=== PATIENT | male | born 1980 | race Caucasian/White ===

== ENCOUNTER 2017-05-07 13:12 | Observation (INO) | payer OTHER ==
[~2017-05-07] VITALS: Ht 175.3 cm; Wt 92.3 kg
[~2017-05-07 13:12] MED LIST: LORTA5 PO; PYRI200T4 PO
[2017-05-07 13:13] VITALS: BP 128/90; PULSE 84; RESP 20; TEMP 98.4; O2SAT 97
--- NOTE | 2017-05-07 13:17 | PD ---
Physical Exam Time Seen by Provider: 13:15 Narrative 36yo M c/o migraine SAMPSON's since March after having TIA. Sent by Dr. Witt. Went to [facility] last night and had CT; he says he's had 2 CT scans since March 19. Patient seen in triage. VS reviewed. Awaiting bed placement. Data Data Last Documented VS Vital Signs Date Time Temp Pulse Resp B/P (MAP) Pulse Ox O2 Delivery O2 Flow Rate FiO2 05/07/17 13:13 98.4 84 20 128/90 (103) 97 Room Air MDM Supervised Visit with ADELFO: Lacy Ochoa May 07, 2017 13:17
[2017-05-07] MEDS ORDERED: PROCHLORPERAZINE INJ 10 MG/2 ML VIAL IV PUSH ONE (14:30)
[2017-05-07] MEDS ORDERED: SODIUM CHLOR 0.9% 1000 ML INJ 1,000 ML IV ONE (14:30)
[2017-05-07] MEDS ORDERED: diphenhydrAMINE HCL 50 MG/ML VIAL IV PUSH ONE (14:30)
[2017-05-07 15:12] LABS: BASOPHIL % 0.3 % (0.0-2.0); EOSINOPHIL # 0.2 TH/MM3 (0-0.4); EOSINOPHIL % 1.7 % (0.0-4.0); HEMATOCRIT 47.5 % (39.0-51.0); HEMO FLAGS DIFF FINAL; LYMPHOCYTE # 3.1 TH/MM3 (1.0-4.8); MEAN CELL VOLUME 93.5 FL (80.0-100.0); MEAN CORPUSCULAR HEMOGLOBIN 31.9 PG (27.0-34.0); MEAN CORPUSCULAR HGB CONC 34.1 % (32.0-36.0); MONO % 7.2 % (0.0-8.0); NEUT % 59.8 % (16.0-70.0); PLATELET COUNT 249 TH/MM3 (150-450); RED BLOOD COUNT 5.08 MIL/MM3 (4.50-5.90); RED CELL DISTRIBUTION WIDTH 13.1 % (11.6-17.2)
[2017-05-07] MEDS ORDERED: LACTULOSE SYRUP 20 GM/30 ML CUP PO PRN (15:15)
[2017-05-07] MEDS ORDERED: ONDANSETRON HCL 4 MG/2 ML VIAL IVP PRN (15:15)
[2017-05-07] MEDS ORDERED: BISACODYL 10 MG SUPP RECTAL PRN (15:15)
[2017-05-07] MEDS ORDERED: NALOXONE HCL 0.4 MG/ML AMP IV PRN (15:15)
[2017-05-07] MEDS ORDERED: SENNOSIDES 8.6 MG TAB PO PRN (15:15)
[2017-05-07] MEDS ORDERED: MAGNESIUM HYDROXIDE SUSP 30 ML CUP PO PRN (15:15)
[2017-05-07] MEDS ORDERED: SODIUM CHLORIDE 0.9% FLUSH 10 ML FLUSH IV FLUSH PRN (15:15)
[2017-05-07] MEDS ORDERED: ACETAMINOPHEN 325 MG TAB PO PRN (15:15)
[2017-05-07 15:17] LABS: APTT (PATIENT) 27.7 SEC (24.3-30.1)
[2017-05-07] MEDS ORDERED: GADODIAMIDE PF 287 MG/ML 20 ML VIAL (for RAD MRI) IVCONTRAST ONE (15:23)
[2017-05-07 15:24] LABS: ANION GAP 8 MEQ/L (5-15); AST (GOT) 19 U/L (15-37); BICARBONATE 27.6 MEQ/L (21.0-32.0); BLOOD UREA NITROGEN 11 MG/DL (7-18); CHLORIDE 104 MEQ/L (98-107); GLOMERULAR FILTRATION RATE 82 ML/MIN (>89); POTASSIUM 3.9 MEQ/L (3.5-5.1); SODIUM (NA) 140 MEQ/L (136-145)
[2017-05-07 15:25] LABS: ALT (GPT) 33 U/L (12-78)
[2017-05-07 15:27] LABS: ALKALINE PHOSPHATASE 90 U/L (45-117); TOTAL BILIRUBIN ADULT 0.4 MG/DL (0.2-1.0)
--- NOTE | 2017-05-07 15:27 | PD ---
HPI Chief Complaint: Headache Time Seen by Provider: 13:48 Travel History International Travel<30 days: No Contact w/Intl Traveler<30days: No Traveled to known affect area: No History of Present Illness HPI This is a 36-year-old male with a history of HIV diagnosed in 2004, well- controlled on antiretroviral medicines, who presents to the emergency department with headache. He reports that in March he had 2 episodes a heat stroke. He said since then he's had pretty persistent but waxing and waning headaches. He's been seen in the ER at [facility] multiple times. He's had lab work, 2 CTs of his head, with no clear cause of the symptoms. He states more recently started having intermittent episodes of left arm locking up and tightening with soreness and pain. No clear convulsion symptoms. He saw his infectious disease doctor who had referred him to the emergency department about a week or so ago. He was in the emergency department again last night and so came to [facility] today. History Past Medical History Narrative Medical HIV, well-controlled on medications, last CD4 count was 1650 Social History Alcohol Use: No Tobacco Use: Yes Allergies-Medications (Allergen,Severity, Reaction): Coded Allergies: morphine (Unverified Allergy, Severe, 04/22/17) penicillin G (Unverified Allergy, Severe, 04/22/17) Reported Meds & Prescriptions Reported Meds & Active Scripts Active Lortab 5/325 Tab (Hydrocodone-Acetaminophen) 1 Tab Tab 1 Tab PO Q6H PRN Pyridium (Phenazopyridine HCl) 200 Mg Tab 200 Mg PO TID Review of Systems Except as stated in HPI: all other systems reviewed are Neg Physical Exam Narrative GENERAL: Well-appearing 36-year-old man, no acute distress. SKIN: Focused skin assessment warm/dry. HEAD: Atraumatic. Normocephalic. CARDIOVASCULAR: Regular rate and rhythm. No murmur appreciated. RESPIRATORY: No accessory muscle use. Clear to auscultation. Breath sounds equal bilaterally. GASTROINTESTINAL: Abdomen soft, non-tender, nondistended. Hepatic and splenic margins not palpable. MUSCULOSKELETAL: No obvious deformities. No clubbing. No cyanosis. No edema. NEUROLOGICAL: Awake and alert. No obvious cranial nerve deficits. Motor grossly within normal limits. Normal speech. PSYCHIATRIC: Appropriate mood and affect; insight and judgment normal. Data Data Last Documented VS Vital Signs Date Time Temp Pulse Resp B/P (MAP) Pulse Ox O2 Delivery O2 Flow Rate FiO2 05/07/17 14:27 100 Room Air 05/07/17 13:13 98.4 84 20 128/90 (103) Orders Orders Mri Brain W&W/O Contrast (05/07/17 ) Mrv Brain W Contrast (05/07/17 ) Mra Brain W/O Contrast (Cow) (05/07/17 ) Us Carotid Arteries Comp Bilat (05/07/17 ) Eeg Study (05/07/17 ) Iv Access Insert/Monitor (05/07/17 14:26) Complete Blood Count With Diff (05/07/17 14:26) Comprehensive Metabolic Panel (05/07/17 14:26) Act Partial Throm Time (Ptt) (05/07/17 14:26) Prothrombin Time / Inr (Pt) (05/07/17 14:26) Consult Neurology (05/07/17 ) Consult Infectious Disease (05/07/17 ) Prochlorperazine Inj (Compazine Inj) (05/07/17 14:30) Diphenhydramine Inj (Benadryl Inj) (05/07/17 14:30) Sodium Chlor 0.9% 1000 Ml Inj (Ns 1000 M (05/07/17 14:30) (Hub Use Only)Inp Phy Cons/Ref (05/07/17 ) Place In Observation (05/07/17 ) Vital Signs (Adult) Q4H (05/07/17 15:15) Activity Oob Ad Chanel (05/07/17 15:15) Cathead Operator / Telemetry .CONTINUOUS (05/07/17 15:15) Diet Regular Basic (05/07/17 Dinner) Sodium Chlor 0.9% 1000 Ml Inj (Ns 1000 M (05/07/17 15:15) Sodium Chloride 0.9% Flush (Ns Flush) (05/07/17 15:15) Sodium Chloride 0.9% Flush (Ns Flush) (05/07/17 21:00) Acetaminophen (Tylenol) (05/07/17 15:15) Ondansetron Inj (Zofran Inj) (05/07/17 15:15) Vte Prophylaxis Not Indicated (05/07/17 15:15) Scd Bilateral/Knee High SAUNDRA.BID (05/07/17 15:15) Naloxone Inj (Narcan Inj) (05/07/17 15:15) Docusate Sodium-Senna (Marlene-Colace) (05/07/17 21:00) Magnesium Hydroxide Liq (Milk Of Magnesi (05/07/17 15:15) Sennosides (Senokot) (05/07/17 15:15) Bisacodyl Supp (Dulcolax Supp) (05/07/17 15:15) Lactulose Liq (Lactulose Liq) (05/07/17 15:15) Idrp-Gylyd-Vgot 325-50-40 Mg (Fioricet 3 (05/07/17 15:30) Admit Order (Ed Use Only) (05/07/17 ) Labs Laboratory Tests Test 05/07/17 14:40 White Blood Count 10.0 TH/MM3 Red Blood Count 5.08 MIL/MM3 Hemoglobin 16.2 GM/DL Hematocrit 47.5 % Mean Corpuscular Volume 93.5 FL Mean Corpuscular Hemoglobin 31.9 PG Mean Corpuscular Hemoglobin Concent 34.1 % Red Cell Distribution Width 13.1 % Platelet Count 249 TH/MM3 Mean Platelet Volume 8.2 FL Neutrophils (%) (Auto) 59.8 % Lymphocytes (%) (Auto) 31.0 % Monocytes (%) (Auto) 7.2 % Eosinophils (%) (Auto) 1.7 % Basophils (%) (Auto) 0.3 % Neutrophils # (Auto) 6.0 TH/MM3 Lymphocytes # (Auto) 3.1 TH/MM3 Monocytes # (Auto) 0.7 TH/MM3 Eosinophils # (Auto) 0.2 TH/MM3 Basophils # (Auto) 0.0 TH/MM3 CBC Comment DIFF FINAL Differential Comment Prothrombin Time 11.0 SEC Prothromb Time International Ratio 1.0 RATIO Activated Partial Thromboplast Time 27.7 SEC MDM Medical Decision Making Medical Screen Exam Complete: Yes Emergency Medical Condition: Yes Differential Diagnosis Headache, concussion, bleed, partial seizures, other Narrative Course Medical decision making INITIAL: 36-year-old man, presents to the emergency department with ongoing headaches, and intermittent left upper extremity muscle spasms or contractures. Slightly concerning for partial seizures. 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 I spoke with Dr. Mathews, who agrees with these recommendations and would like the patient brought into the hospital for this. He like the patient to be seen by infectious disease. I spoke with Dr. Cerna, with [facility] hospitalist who will admit the patient. Diagnosis Primary Impression: Headache Additional Impression: Spasms of the hands or feet Admitting Information Admitting Physician Requests: Admit Rah Maldonado MD May 07, 2017 15:27
[2017-05-07] MEDS ORDERED: oxyCODONE/ACETAMINOPHEN 5 MG/325 MG TAB PO PRN ×2 (15:30)
[2017-05-07] MEDS ORDERED: ACETAMIN 325 MG/BUTALBITAL 50 MG/CAFFEINE 40 MG TAB PO PRN (15:30)
--- NOTE | 2017-05-07 15:57 | HHI.HP ---
HPI Service [facility] Hospitalists Primary Care Physician Med Huerta MD Admission Diagnosis Headache, Seizures Diagnoses: Chief Complaint: Headaches/migraines Travel History International Travel<30 Days: No Contact w/Intl Traveler <30 Da: No Traveled to Known Affected Are: No History of Present Illness This is a 36 yo male with PMHX for HIV diagnosed in 2004 well controlled on antiretroviral medications with last CD4 count of 1650 who was sent to [facility] ED by his ID physician with complaints of severe headaches that have been ongoing since he suffered a heat stroke on 03/18/17. Patient reports nearly daily headaches with associated photophobia and phonophobia that wax and wane in severity. He denies any recent illness. He denies any fever or chills. He denies any associated vision changes, lightheadedness, nausea, vomiting, shortness of breath, chest pain or abdominal pain. He denies any eye tearing or nasal discharge. He denies any personal or family history of migraines. Since the heat stroke, he reports 4 episodes lasting from 2 to 4 minutes of becoming "locked up" and unable to move with slurred speech and confusion followed by total body weakness. He denies any associated bowel/ bladder incontinence or tongue biting. He has been to the [facility] ED 3 times with these complaints and has had lab work and CT scan head x 2 that were unremarkable. They also attempted 2 lumbar punctures unsuccessfully. He has not been seen by a Neurologist. 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 Dr. Mathews was contacted from our ED physician and agrees with these recommendations and would like the patient brought into the hospital for this. Dr. Mathews has requested ID consultation. Lab studies obtained in the ED were unremarkable. Review of Systems Except as stated in HPI: all other systems reviewed are Neg Past Family Social History Past Medical History HIV well controlled on antiretroviral medications Past Surgical History Appendectomy ORIF right leg Reported Medications Lortab 5/325 Tab (Hydrocodone-Acetaminophen) 1 Tab Tab 1 Tab PO Q6H PRN Pyridium (Phenazopyridine HCl) 200 Mg Tab 200 Mg PO TID Allergies: Coded Allergies: morphine (Unverified Allergy, Severe, 04/22/17) penicillin G (Unverified Allergy, Severe, 04/22/17) Active Ordered Medications Current Medications Medications (Trade) Dose Ordered Sig/Gilberto Route Start Time Stop Time Status Last Admin Sodium Chloride 1,000 ml @ 100 mls/hr Q10H IV 05/07/17 15:15 UNV (NS Flush) 2 ml UNSCH PRN IV FLUSH 05/07/17 15:15 UNV (NS Flush) 2 ml BID IV FLUSH 05/07/17 21:00 UNV (Tylenol) 650 mg Q4H PRN PO 05/07/17 15:15 UNV (Zofran Inj) 4 mg Q6H PRN IVP 05/07/17 15:15 UNV (Narcan Inj) 0.4 mg UNSCH PRN IV 05/07/17 15:15 UNV (Marlene-Colace) 1 tab BID PO 05/07/17 21:00 UNV (Milk Of Magnesia Liq) 30 ml Q12H PRN PO 05/07/17 15:15 UNV (Senokot) 17.2 mg Q12H PRN PO 05/07/17 15:15 UNV (Dulcolax Supp) 10 mg DAILY PRN RECTAL 05/07/17 15:15 UNV (Lactulose Liq) 30 ml DAILY PRN PO 05/07/17 15:15 UNV (Percocet 5-325 Mg) 1 tab Q4H PRN PO 05/07/17 15:30 UNV (Percocet 5-325 Mg) 2 tab Q6H PRN PO 05/07/17 15:30 UNV Family History No family history of migraines, seizures or TIA/CVA. (+)DM Social History Patient reports tobacco use of 1ppd since he was 13. He reports rare alcohol consumption. He denies any illicit drug use. Physical Exam Vital Signs Vital Signs Date Time Temp Pulse Resp B/P (MAP) Pulse Ox O2 Delivery O2 Flow Rate FiO2 05/07/17 14:27 100 Room Air 05/07/17 13:13 98.4 84 20 128/90 (103) 97 Room Air Physical Exam GENERAL: This is a well-nourished, well-developed patient, in no apparent distress. Lying in the room with the lights off. Awake and alert. SKIN: No rashes, ecchymoses or lesions. Cool and dry. HEAD: Atraumatic. Normocephalic. No temporal or scalp tenderness. EYES: Pupils equal round and reactive. Extraocular motions intact. No scleral icterus. No injection or drainage. ENT: Nose without bleeding or purulent drainage. Throat without erythema, tonsillar hypertrophy or exudate. Uvula midline. Airway patent. NECK: Trachea midline. No lymphadenopathy. Supple, nontender, no meningeal signs. CARDIOVASCULAR: Regular rate and rhythm without murmurs, gallops, or rubs. RESPIRATORY: Clear to auscultation. Breath sounds equal bilaterally. No wheezes , rales, or rhonchi. GASTROINTESTINAL: Abdomen soft, non-tender, nondistended. No hepato-splenomegaly , or palpable masses. No guarding. MUSCULOSKELETAL: Extremities without clubbing, cyanosis, or edema. No joint tenderness, effusion, or edema noted. No calf tenderness. NEUROLOGICAL: Awake and alert. Cranial nerves II through XII intact. Motor and sensory grossly within normal limits. Five out of 5 muscle strength in all muscle groups. Normal speech. Laboratory Laboratory Tests Test 05/07/17 14:40 White Blood Count 10.0 Red Blood Count 5.08 Hemoglobin 16.2 Hematocrit 47.5 Mean Corpuscular Volume 93.5 Mean Corpuscular Hemoglobin 31.9 Mean Corpuscular Hemoglobin Concent 34.1 Red Cell Distribution Width 13.1 Platelet Count 249 Mean Platelet Volume 8.2 Neutrophils (%) (Auto) 59.8 Lymphocytes (%) (Auto) 31.0 Monocytes (%) (Auto) 7.2 Eosinophils (%) (Auto) 1.7 Basophils (%) (Auto) 0.3 Neutrophils # (Auto) 6.0 Lymphocytes # (Auto) 3.1 Monocytes # (Auto) 0.7 Eosinophils # (Auto) 0.2 Basophils # (Auto) 0.0 CBC Comment DIFF FINAL Differential Comment Prothrombin Time 11.0 Prothromb Time International Ratio 1.0 Activated Partial Thromboplast Time 27.7 Blood Urea Nitrogen 11 Creatinine 1.02 Random Glucose 92 Total Protein 6.9 Albumin 3.7 Calcium Level 9.3 Alkaline Phosphatase 90 Aspartate Amino Transf (AST/SGOT) 19 Alanine Aminotransferase (ALT/SGPT) 33 Total Bilirubin 0.4 Sodium Level 140 Potassium Level 3.9 Chloride Level 104 Carbon Dioxide Level 27.6 Anion Gap 8 Estimat Glomerular Filtration Rate 82 Result Diagram: 05/07/17 1440 05/07/17 1440 Caprini VTE Risk Assessment Caprini VTE Risk Assessment: No/Low Risk (score <= 1) Caprini Risk Assessment Model Point Value = 1 Point Value = 2 Point Value = 3 Point Value = 5 Age 41-60 Minor surgery BMI > 25 kg/m2 Swollen legs Varicose veins or History of unexplained or recurrent spontaneous Oral contraceptives or hormone replacement Sepsis (< 1 month) Serious lung disease, including pneumonia (< 1 month) Abnormal pulmonary function Acute myocardial infarction Congestive heart failure (< 1 month) History of inflammatory bowel disease Medical patient at bed rest Age 61-74 Arthroscopic surgery Major open surgery (> 45 min) Laparoscopic surgery (> 45 min) Malignancy Confined to bed (> 72 hours) Immobilizing plaster cast Central venous access Age >= 75 History of VTE Family history of VTE Factor V Leiden Prothrombin [id number] Lupus anticoagulant Anticardiolipin antibodies Elevated serum homocysteine Heparin-induced thrombocytopenia Other congenital or acquired thrombophilia Stroke (< 1 month) Elective arthroplasty Hip, pelvis, or leg fracture Acute spinal cord injury (< 1 month) Prophylaxis Regimen Total Risk Factor Score Risk Level Prophylaxis Regimen 0-1 Low Early ambulation 2 Moderate Order ONE of the following: *Sequential Compression Device (SCD) *Heparin 5000 units SQ BID 3-4 Higher Order ONE of the following medications: *Heparin 5000 units SQ TID *Enoxaparin/Lovenox 40 mg SQ daily (WT < 150 kg, CrCl > 30 mL/min) *Enoxaparin/Lovenox 30 mg SQ daily (WT < 150 kg, CrCl > 10-29 mL/min) *Enoxaparin/Lovenox 30 mg SQ BID (WT < 150 kg, CrCl > 30 mL/min) AND/OR *Sequential Compression Device (SCD) 5 or more Highest Order ONE of the following medications: *Heparin 5000 units SQ TID (Preferred with Epidurals) *Enoxaparin/Lovenox 40 mg SQ daily (WT < 150 kg, CrCl > 30 mL/min) *Enoxaparin/Lovenox 30 mg SQ daily (WT < 150 kg, CrCl > 10-29 mL/min) *Enoxaparin/Lovenox 30 mg SQ BID (WT < 150 kg, CrCl > 30 mL/min) AND *Sequential Compression Device (SCD) Assessment and Plan Assessment and Plan 36 yo male with PMHX for HIV diagnosed in 2004 well controlled on antiretroviral medications with last CD4 count of 1650 who was sent to [facility] ED by his ID physician with complaints of severe headaches that have been ongoing since he suffered a heat stroke on 03/18/17. Severe headaches - Migraine vs seizure vs TIA/CVA Dr. Mathews consulted while patient in ED and will see patient. Will follow up on his assessment and recommendations. ID consulted as requested by Dr. Mathews VSS, patient is afebrile, initial lab studies unremarkable obtain TSH level continuous cardiac monitoring MRI brain MRV Brain US Carotids EEG Percocet for pain as needed. Patient reports intolerance to Fioricet Zofran prn nausea HIV well controlled with recent CD4 count of 1650 continue patient on home antiretroviral medications DVT prophylaxis Bilateral SCDs Discussed with patient, significant other and Dr. Parth TAYLOR Comments Patient complaining of a headache. He stated that light makes the headache worse. He had this problem since he had he stroke. Patient was evaluated at [facility] with negative workup. By his infectious disease physician to come to the ED. GENERAL: in NAD SKIN: Warm and dry. HEAD: Normocephalic. EYES: No scleral icterus. No injection or drainage. NECK: Supple, trachea midline. No JVD or lymphadenopathy. CARDIOVASCULAR: Regular rate and rhythm without murmurs, gallops, or rubs. RESPIRATORY: Breath sounds equal bilaterally. No accessory muscle use. GASTROINTESTINAL: Abdomen soft, non-tender, nondistended. MUSCULOSKELETAL: No cyanosis, or edema. BACK: Nontender without obvious deformity. No CVA tenderness. NEURO: AAO 3. Cranial nerve II-12 intact. Sensation is intact. Motor is grossly intact. Headache, questionable migraine headache Questionable seizure activity History of HIV Patient will have TIA workup with EEG to rule out seizure. Will give Percocet when necessary for pain since patient stated that the one thing that worked so far. Neurologist already consulted. Attestation The exam, history, and the medical decision-making described in the above note were completed with the assistance of the mid-level provider. I reviewed and agree with the findings presented. I attest that I had a [id number] encounter with the patient on the same day, and personally performed and documented my assessment and findings in the medical record. Helene Hicks May 07, 2017 15:57 Pamela Cerna MD May 07, 2017 17:36
--- NOTE | 2017-05-07 15:58 | RADRPT ---
EXAM DATE/TIME: 05/07/2017 15:11 [facility] COMPARISON: No previous studies available for comparison. INDICATIONS : Weakness. MEDICAL HISTORY : Weakness. HIV+. SURGICAL HISTORY : None. ENCOUNTER: Initial ACUITY: 4-6 days PAIN SCORE: 7/10 LOCATION: Bilateral neck PEAK SYSTOLIC VELOCITIES (cm/sec): ICA/CCA RATIO: Right: 0.9 Left: 0.8 ICA: Right: 90.5 Left: 85.1 CCA: Right: 96.4 Left: 111.3 ECA: Right: 100.3 Left: 101.7 VERTEBRAL: Right: 64.6 antegrade Left: 36.2 antegrade Elevated flow velocities and ICA/CCA ratios have been found to correlate with increased degrees of vessel stenosis, calculated as percentage of diameter relative to a normal segment of distal ICA/CCA FINDINGS: RIGHT CAROTID: No significant stenosis is visualized. The waveforms are within normal limits. LEFT CAROTID: No significant stenosis is visualized. The waveforms are within normal limits. VERTEBRAL ARTERIES: Antegrade flow is seen in both vertebral arteries. MISCELLANEOUS: There are bilateral thyroid nodules identified, largest in the right lobe greater than 15 mm. CONCLUSION: No evidence of flow-limiting carotid stenosis. Recommend thyroid sonography on an elective basis. Tank Wiseman MD on May 07, 2017 at 15:53 Board Certified Radiologist. This report was verified electronically.
[2017-05-07 17:27] VITALS: BP 108/61; PULSE 65; RESP 16; O2SAT 97
--- NOTE | 2017-05-07 17:38 | RADRPT ---
EXAM DATE/TIME: 05/07/2017 16:32 [facility] COMPARISON: No previous studies available for comparison. INDICATIONS : Cephalgia. Seizures. CONTRAST: 20 cc Omniscan (gadodiamide) IV MEDICAL HISTORY : HIV. SURGICAL HISTORY : Oskar in leg. ENCOUNTER: Subsequent ACUITY: 1 day PAIN SCORE: 4/10 LOCATION: head. TECHNIQUE: Multiplanar, multisequence MRI of the brain was performed both prior to and following the administrat ion of paramagnetic contrast. FINDINGS: CEREBRUM: The ventricles are normal for age. No evidence of midline shift, mass lesion, hemorrhage or acute in farction. No extraaxial fluid collections are seen. The pituitary gland and suprasellar cistern are normal in configuration. WHITE MATTER: No significant signal abnormalities are seen in the white matter. POSTERIOR FOSSA: The cerebellum and brainstem are intact. The 4th ventricle is midline. The cerebellopontine angle is unremarkable. The cerebellar tonsils are normal in position. DIFFUSION IMAGING: No focal areas of restricted diffusion are seen. No evidence of acute infarction. EXTRACRANIAL: The visualized portions of the orbits and paranasal sinuses are unremarkable. POST-CONTRAST: No abnormal areas of parenchymal or dural enhancement. No evidence of blood-brain barrier breakdown. CONCLUSION: Unremarkable MRI study. Elia Sahu MD on May 07, 2017 at 17:35 Board Certified Radiologist. This report was verified electronically.
--- NOTE | 2017-05-07 17:39 | RADRPT ---
EXAM DATE/TIME: 05/07/2017 16:32 1 [facility] COMPARISON: No previous studies available for comparison. INDICATIONS : Cephalgia. Seizures. MEDICAL HISTORY : HIV. SURGICAL HISTORY : Oskar in leg. ENCOUNTER: Subsequent ACUITY: 1 day PAIN SCORE: 4/10 LOCATION: head. Please note a normal MRA of the brain does not entirely exclude the possibility of a small aneurysm, nor the possibility of distal intracranial vessel disease. TECHNIQUE: 3D time of flight MRA was performed. Source images, multiplanar STS MIP, and 3D volume MIP reconstru ctions were reviewed. FINDINGS: There is excellent visualization of the major intracranial arteries out to the second-order branch ve ssels. There is no evidence for aneurysm, vessel truncation or stenosis, and no evidence for vascula r malformation. CONCLUSION: Unremarkable exam. Elia Sahu MD on May 07, 2017 at 17:37 Board Certified Radiologist. This report was verified electronically.
[2017-05-07] MEDS ORDERED: SODIUM CHLOR 0.9% 1000 ML INJ 1,000 ML IV SCH (18:00)
--- NOTE | 2017-05-07 18:47 | RADRPT ---
EXAM DATE/TIME: 05/07/2017 16:32 COMPARISON: No previous studies available for comparison. INDICATIONS : Seizures. Cephalgia. CONTRAST: 20 cc Omniscan (gadodiamide) IV MEDICAL HISTORY : HIV. SURGICAL HISTORY : Oskar in leg. ENCOUNTER: Subsequent ACUITY: 1 day PAIN SCORE: 4/10 LOCATION: head. FINDINGS: The dural sinuses appear patent. No thrombus is seen. CONCLUSION: Normal MRV. Tank Givens MD on May 07, 2017 at 18:44 Board Certified Radiologist. This report was verified electronically.
[2017-05-07 20:00] VITALS: BP 105/58; PULSE 65; RESP 18; TEMP 98.1; O2SAT 93
[2017-05-07] MEDS ORDERED: SODIUM CHLORIDE 0.9% FLUSH 10 ML FLUSH IV FLUSH SCH (21:00)
[2017-05-07] MEDS: DOCUSATE SODIUM 50 MG/SENNA 8.6 MG TAB PO SCH (21:15)
[2017-05-07 21:30] VITALS: PULSE 75
[2017-05-08] VITALS: BP 129/85; PULSE 71; RESP 18; TEMP 98.2; O2SAT 96
[2017-05-08 04:00] VITALS: BP 107/69; PULSE 78; RESP 18; TEMP 97.7; O2SAT 96
--- NOTE | 2017-05-08 07:12 | MB ---
cc: SHIV NELSON DATE OF CONSULTATION 05/07/2017 HISTORY OF PRESENT ILLNESS A 36-year-old right-handed man with a history of HIV-positive, otherwise very healthy. No major medical problems. He thinks he had a "heat stroke" on about March 16 where he was outside, it was hot. He went home, took a shower. It was after the shower, he was by the bed and he fell on the bed and was unconscious or asleep it is unclear for about 4 hours or so. He had a headache at that time and the headaches seemed to start about that time, left parietal and right posterior. He has had a headache most days since. He has been about three days without a headache a few times since that time. He never had a headache prior to that. He has been taking all of his HIV meds. He says he has a good CD4 count. Then, about 2 days later, he was home sitting on the bed putting his shorts on when again the next thing he knows he woke up on the bed and it was about 4 hours later. Headaches are about an 8/10, throbbing. No scintillations, nausea or vomiting. Then on or about April 20 he had an episode where he was sitting watching TV and his left arm spasmed up as did the leg and he had difficulty talking. It was very tight and with spasm, lasted about 15 minutes and then returned to normal. A similar episode occurred on April 25; that lasted about 4 minutes. No odd smells, tastes or devi vu. He has never had a seizure, never woke up, wet the bed or bit his tongue. His partner that lives with him has seizures, however. REVIEW OF SYSTEMS He denies any hypertension, diabetes, hypercholesterolemia, [place], CABG, cardiac arrhythmia, renal, hepatic or pulmonary disease, thyroid disease, lupus, ulcer, cancer, seizure or stroke. MEDICATIONS 1. Lortab. 2. Pyridium. 3. Presumably some other meds for HIV. ALLERGIES MORPHINE. PENICILLIN G. FAMILY HISTORY Negative for cancer or seizure. Positive for stroke. SOCIAL HISTORY He is a smoker, not a drinker. No drugs. 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 PHYSICAL EXAMINATION VITAL SIGNS: Afebrile, 65, 16 108/61. NECK: There were no carotid bruits. HEART: Regular rhythm. I do not detect a murmur. NEUROLOGICAL EXAMINATION: Disks are sharp. Pupils show the left pupil was about 4 mm, the right is 3.5. They both react normally. Visual paul are full. Extraocular movements intact without nystagmus. Face symmetric with normal station. Tongue was midline. There is no drift. He had normal strength in upper and lower extremities bilaterally. Tone was normal throughout. DTRs are 1+ and symmetric throughout. Toes downgoing bilaterally. He has no ankle clonus. Pinprick, vibratory sense are intact throughout. He is not ataxic on [id number]. Fast finger movements are symmetric and normal. LABORATORY DATA CBC is normal. Basic metabolic profile, LFTs, albumin, coags normal. IMAGING STUDIES An MRI of the brain was normal with and without contrast as was carotid ultrasound, MRA of the crow of [place] and MR venogram of the brain read as normal. IMPRESSION 1. I am not sure why he has developed headaches now. He has never had them before. I am concerned of course with the HIV he could have a cryptococcal meningitis. I will have ID see him to evaluate him with the HIV. 2. We will check an LP including an opening pressure and an EEG in case he develops seizures. 3. Check a sed rate on him. I will be following him with you in the hospital. MD MARCO Hummel/ERICA /6:40 PM /6:52 AM
[2017-05-08 08:23] VITALS: BP 116/71; PULSE 71; RESP 18; TEMP 98.4; O2SAT 97
--- NOTE | 2017-05-08 09:00 | HHI.PR ---
Subjective Remarks no new spells trotter gone Objective Vital Signs Date Time Temp Pulse Resp B/P (MAP) Pulse Ox O2 Delivery O2 Flow Rate FiO2 05/08/17 08:23 98.4 71 18 116/71 (86) 97 05/08/17 04:00 97.7 78 18 107/69 (82) 96 05/08/17 00:00 98.2 71 18 129/85 (100) 96 05/07/17 21:30 75 05/07/17 20:00 98.1 65 18 105/58 (74) 93 05/07/17 17:27 65 16 108/61 (77) 97 Room Air 05/07/17 14:27 100 Room Air 05/07/17 13:13 98.4 84 20 128/90 (103) 97 Room Air I/O 05/07/17 05/07/17 05/07/17 05/08/17 05/08/17 05/08/17 07:00 15:00 23:00 07:00 15:00 23:00 # Voids 1 Result Diagram: 05/07/17 1440 05/07/17 1440 Objective Remarks nad nl speech Assessment and Plan Assessment and Plan imp mri /a/v and us nl eeg pend LP and labs pend after eeg done will start juan should hold on driving until further notice Odell Mathews MD May 08, 2017 09:00
[2017-05-08] MEDS ORDERED: LORazepam 2 MG/ML VIAL ONE (09:41)
--- NOTE | 2017-05-08 10:29 | PD.RAD ---
Post Procedure Progress Note Pre Procedure Diagnosis: (1) Headache Post Procedure Diagnosis: (1) Headache Procedure Date: May 08, 2017 Supervising Radiologist: Odell Salgado Proceduralist/Assist: Gabriela Robertson, RT(R)(CV), Jenelle Woods RT(R), Shaila Marrero RT(R) Anesthesia: Local Plan of Activity Patient to Unit: Nursing Unit Patient Condition: Good See PACS Report for procedural detail/treatment Spinal Procedure Lumbar Puncture L3-L4 Fluid Removal (CCs): 10 (opening pressure 13) Fluid Description: Odell Machuca MD May 08, 2017 10:29
[2017-05-08 11:23] LABS: CSF LYMPHOCYTES 92 %; CSF MONOCYTES 8 %
[2017-05-08 11:27] LABS: CSF LYMPHOCYTES 73 %; CSF MONOCYTES 26 %; CSF NEUTROPHILS 1 %
[2017-05-08 11:37] LABS: GROSS BLOOD TUBE #1 0 (0); GROSS BLOOD TUBE #2 0 (0); GROSS BLOOD TUBE #3 0 (0); SUPERNATE COLOR TUBE #1 CLEAR (CLEAR); SUPERNATE COLOR TUBE #2 CLEAR (CLEAR); SUPERNATE COLOR TUBE #3 CLEAR (CLEAR); SUPERNATE COLOR TUBE #4 CLEAR (CLEAR); VOLUME TUBE # 1 3.1 ML; VOLUME TUBE # 3 2.5 ML; VOLUME TUBE # 4 2.8 ML; WBC TUBE #1 5 /MM3 (0-10)
[2017-05-08 11:38] LABS: GROSS BLOOD TUBE #4 0 (0)
[2017-05-08 11:39] LABS: CSF NEUTROPHILS 0 %
[2017-05-08 11:40] LABS: GROSS BLOOD TUBE #4 0 (0); SUPERNATE COLOR TUBE #4 CLEAR (CLEAR); VOLUME TUBE # 4 2.8 ML; WBC TUBE #4 4 /MM3 (0-10)
[2017-05-08 11:41] VITALS: BP 109/68; PULSE 87; RESP 18; TEMP 98.4; O2SAT 96
[2017-05-08] MEDS ORDERED: levETIRAcetam 500 MG TAB PO SCH (12:00)
--- NOTE | 2017-05-08 12:18 | RADRPT ---
EXAM DATE/TIME: 05/08/2017 09:58 [facility] COMPARISON: No previous studies available for comparison. INDICATIONS : Patient with history of headaches in need of lumbar puncture. MEDICAL HISTORY : HIV SURGICAL HISTORY : ORIF right leg, Appendectomy ENCOUNTER: Initial ACUITY: 1 month PAIN SCORE: 0/10 LUMBAR PUNCTURE TIME: 1004 hours FLUORO TIME: 1 minutes IMAGE SERIES: 0 ACCESS LEVEL: L3-4 OPENING PRESSURE: 13 cm of water CLOSING PRESSURE: Not requested. FLUID: 11 cc of clear CSF was collected and sent to the laboratory for analysis. PROCEDURE : 1. Fluoroscopic guided lumbar puncture. 2. Recording of opening pressure. The risks, benefits and alternatives to the procedure were explained and verbal and written consent w as obtained. The site was prepped in sterile fashion. Full sterile technique was used, including ca p, mask, sterile gloves and gown and a large sterile sheet. Hand hygiene and 2% chlorhexidine and/or betadine/alcohol prep was utilized per protocol for cutaneous antisepsis. The skin and subcutaneous tissues were infiltrated with local anesthetic solution. With fluoroscopic guidance the lumbar thecal sac was punctured at the above level described above and the opening pressure was recorded. The above described fluid was removed without difficulty. The patient tolerated the procedure well and there were no complications. CONCLUSION: Uncomplicated fluoroscopically guided lumbar puncture with pressures as above. Odell Salgado MD on May 08, 2017 at 12:16 Board Certified Radiologist. This report was verified electronically.
[2017-05-08] MEDS: DOCUSATE SODIUM 50 MG/SENNA 8.6 MG TAB PO SCH (14:12)
[2017-05-08 15:42] VITALS: BP 92/54; PULSE 18; RESP 18; TEMP 98.4; O2SAT 97
[2017-05-08] MEDS ORDERED: LEVE500 PO (18:06)
--- NOTE | 2017-05-08 18:12 | HHI.DCPOC ---
Discharge Care Plan Diagnosis: (1) Headache (2) Migraine (3) Spasms of the hands or feet Goals to Promote Your Health * To prevent worsening of your condition and complications * To maintain your health at the optimal level Directions to Meet Your Goals PLEASE CONTACT DR. NELSON'S OFFICE ON THURSDAY [phone] UNTIL FURTHER NOTICE Take your medications as prescribed Follow your dietary instruction Follow activity as directed Keep your appointments as scheduled Take your immunizations and boosters as scheduled If your symptoms worsen call your PCP, if no PCP go to Urgent Care Center or Emergency Room Smoking is Dangerous to Your Health. Avoid second hand smoke Call the 24-hour hour crisis hotline for domestic abuse at Helene Hicks May 08, 2017 18:12
--- NOTE | 2017-05-08 18:23 | HHI.DS ---
Discharge Summary Admission Date May 07, 2017 at 15:22 Discharge Date: May 08, 2017 Admitting Diagnosis Headache, Seizures (1) Spasms of the hands or feet ICD Code: R25.2 - Cramp and spasm Status: Acute (2) Migraine ICD Code: G43.909 - Migraine, unspecified, not intractable, without status migrainosus (3) Headache ICD Code: R51 - Headache Status: Acute (4) Thyroid nodule ICD Code: E04.1 - Nontoxic single thyroid nodule Procedures 05/08/17 Lumbar Puncture Brief History - From Admission This is a 36 yo male with PMHX for HIV diagnosed in 2004 well controlled on antiretroviral medications with last CD4 count of 1650 who was sent to [facility] ED by his ID physician with complaints of severe headaches that have been ongoing since he suffered a heat stroke on 03/18/17. Patient reports nearly daily headaches with associated photophobia and phonophobia that wax and wane in severity. He denies any recent illness. He denies any fever or chills. He denies any associated vision changes, lightheadedness, nausea, vomiting, shortness of breath, chest pain or abdominal pain. He denies any eye tearing or nasal discharge. He denies any personal or family history of migraines. Since the heat stroke, he reports 4 episodes lasting from 2 to 4 minutes of becoming "locked up" and unable to move with slurred speech and confusion followed by total body weakness. He denies any associated bowel/ bladder incontinence or tongue biting. He has been to the [facility] ED 3 times with these complaints and has had lab work and CT scan head x 2 that were unremarkable. They also attempted 2 lumbar punctures unsuccessfully. He has not been seen by a Neurologist. 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 Dr. Mathwes was contacted from our ED physician and agrees with these recommendations and would like the patient brought into the hospital for this. Dr. Mathews has requested ID consultation. Lab studies obtained in the ED were unremarkable. CBC/BMP: 05/07/17 1440 05/07/17 1440 Significant Findings Laboratory Tests Test 05/07/17 10:04 05/07/17 14:40 05/08/17 10:04 Estimat Glomerular Filtration Rate 82 ML/MIN (>89) CSF RBC (Tube 1) 1 /MM3 (NONE) Imaging Last Impressions Lumbar Puncture Fluoroscopy 05/08/17 0000 Signed Impressions: Service Date/Time: Monday, May 08, 2017 09:58 - CONCLUSION: Uncomplicated fluoroscopically guided lumbar puncture with pressures as above. Odell Salgado MD Head/Brain Mag Res Venography 05/07/17 0000 Signed Impressions: Service Date/Time: April 16:32 - CONCLUSION: Normal MRV. Tank Givens MD Head Magnetic Resonance Angiography 05/07/17 0000 Signed Impressions: Service Date/Time: April 16:32 - CONCLUSION: Unremarkable exam. Elia Sahu MD Carotid Artery Ultrasound 05/07/17 0000 Signed Impressions: Service Date/Time: April 15:11 - CONCLUSION: No evidence of flow-limiting carotid stenosis. Recommend thyroid sonography on an elective basis. Tank Wiseman MD Brain MRI 05/07/17 0000 Signed Impressions: Service Date/Time: April 16:32 - CONCLUSION: Unremarkable MRI study. Elia Sahu MD PE at Discharge GENERAL: This is a well-nourished, well-developed patient, in no apparent distress. Lying in the room with the lights off. Awake and alert. SKIN: No rashes, ecchymoses or lesions. Cool and dry. HEAD: Atraumatic. Normocephalic. No temporal or scalp tenderness. EYES: Pupils equal round and reactive. Extraocular motions intact. No scleral icterus. No injection or drainage. ENT: Nose without bleeding or purulent drainage. Throat without erythema, tonsillar hypertrophy or exudate. Uvula midline. Airway patent. NECK: Trachea midline. No lymphadenopathy. Supple, nontender, no meningeal signs. CARDIOVASCULAR: Regular rate and rhythm without murmurs, gallops, or rubs. RESPIRATORY: Clear to auscultation. Breath sounds equal bilaterally. No wheezes , rales, or rhonchi. GASTROINTESTINAL: Abdomen soft, non-tender, nondistended. No hepato-splenomegaly , or palpable masses. No guarding. MUSCULOSKELETAL: Extremities without clubbing, cyanosis, or edema. No joint tenderness, effusion, or edema noted. No calf tenderness. NEUROLOGICAL: Awake and alert. Cranial nerves II through XII intact. Motor and sensory grossly within normal limits. Five out of 5 muscle strength in all muscle groups. Normal speech. Pt update on day of discharge Patient seen and examined. Patient reports resolution of headache. No further complaints. Discussed with nursing staff. Patient cleared for discharge per Dr. Mathews once labs are drawn and patient is to contact his office on Thursday. Hospital Course 36 yo male with PMHX for HIV diagnosed in 2004 well controlled on antiretroviral medications with last CD4 count of 1650 who was sent to [facility] ED by his ID physician with complaints of severe headaches that have been ongoing since he suffered a heat stroke on 03/18/17. Severe headaches - Migraine vs seizure vs TIA/CVA Dr. Mathews consulted - cleared patient for discharge following blood draw. Patient to follow up in his office on Thursday or Thursday. VSS, patient is afebrile, initial lab studies unremarkable continuous cardiac monitoring MRI brain - unremarkable MRV Brain - normal MRA Brain - unremarkable US Carotids - no e/o flow limiting carotid stenosis but bilateral thyroid nodules identified - recommend outpatient imaging LP studies - unremarkable EEG - pending Percocet for pain as needed. Patient reports intolerance to Fioricet Zofran prn nausea HIV well controlled with recent CD4 count of 1650 continue patient on home antiretroviral medications DVT prophylaxis Bilateral SCDs Pt Condition on Discharge: Good Discharge Disposition: Discharge Home Discharge Time: > 30 minutes Discharge Instructions DIET: Follow Instructions for: As Tolerated, No Restrictions Activities you can perform: See Additionl Instruction (NO DRIVING UNTIL FURTHER NOTICE) Activities to Avoid: Driving (NO DRIVING UNTIL FURTHER NOTICE) Other Activity Instructions: No driving until further notice Follow up Referrals: Neurology - 2-3 Days with Odell Mathews MD PCP Follow-up - 1 Week New Medications: Levetiracetam (Keppra) 500 Mg Tab 500 MG PO Q12HR for SEIZURES for 30 Days, #60 TAB Helene Hicks May 08, 2017 18:23
[2017-05-08] MEDS ORDERED: diphenhydrAMINE HCL 25 MG CAP PO ONE (19:30)
[2017-05-08] MEDS ORDERED: IBUPROFEN 800 MG TAB PO ONE (19:30)
[2017-05-08] MEDS ORDERED: METOCLOPRAMIDE HCL 10 MG/2 ML VIAL IV PUSH ONE (19:30)
[2017-05-09 14:04] LABS: HSV 1,PCR Negative (Negative)
[2017-05-11 10:22] LABS: CSF CRYPTOCOCCUS AG CONF ND (NOT DETECTD)
--- NOTE | 2017-05-11 14:43 | MG ---
cc: ADRIANE BLACKMON M.D. Lab No: [id number] Date: 05/08/17 Age: 36 Sex: M Race: DATE OF 1980 AGE [id number]. REFERRING PHYSICIAN Dr. Agee ROOM 1516 Hyperventilation photic completed. Fair effort with hyperventilation. Awake, drowsy asleep study. MRI unremarkable. Admitted with migraines since March after having a TIA. History of tobacco use, HIV positive, migraine headaches. DESCRIPTION OF RECORD The patient is asleep, initially at the recording there was some minor slowing but as he wakes up there is a normal alpha range 9-12 Hz. EKG unable to be interpreted. Photic stimulation did elicit a posterior driving response. Hyperventilation fairly good effort. There is no epileptiform features. IMPRESSION Overall benign. Overall impression, normal EEG. Clinical correlation. Adriane Blackmon MD DF/NISH /7:24 PM /2:25 PM
[2017-05-13 12:45] LABS: ANA SCREEN NEG (NEG)
== END 2017-05-08 21:03 | disposition home or self-care (01) ==
LOC: NEPD 13:12 → NEDA 15:22 → N05B 18:56
PROVIDERS: ADMIT Hospitalist; ATTEND Hospitalist
DX: G43.909 Migraine, unspecified, not intractable, without status migrainosus (principal); Z21 Asymptomatic human immunodeficiency virus [HIV] infection status; E04.1 Nontoxic single thyroid nodule; R56.9 Unspecified convulsions; R25.2 Cramp and spasm
CPT/HCPCS: 62270; 70544; 70546; 70553; 77003; 80053; 82607; 82945; 84157; 84425; 84439; 84443; 85025; 85610; 85652; 85730; 86038; 86140; 86403; 86592; 87015; 87070; 87102; 87116; 87205; 87206; 87529; 89051; 93880; 95819; 96361; 96374; 96375; 99285; A9579; G0378; J0780; J1200; J2060; J7030